=== PATIENT | female | born 1975 | race African-American/Black ===

== ENCOUNTER 2017-09-26 04:00 | Emergency (ER) | payer OTHER ==
--- NOTE | 2017-09-26 04:04 | PDOC ---
History of Present Illness - General Chief Complaint: Pain, Acute Stated Complaint: OB COMPLICATIONS Time Seen by Provider: 09/26/17 04:03 History Source: Patient - History of Present Illness Initial Comments: 09/26/17 04:25 41 year old female seen inthe ED earlier A3, with a significant past medical history of bipolar disorder, high risk pregnancies and preeclampsia , who presents to the emergency department with, severe abdominal cramping. previous ed course was significant for TVUS + IUP no heart rate likely demise Past History - Past Medical History Allergies/Adverse Reactions: Allergies Allergy/AdvReac Type Severity Reaction Status Date / Time No Known Allergies Allergy Verified 09/26/17 04:06 Home Medications: Ambulatory Orders Divalproex [Depakote -] 500 mg PO BID #60 tablet.ec 07/05/16 Paroxetine HCl [Paxil] 40 mg PO DAILY #30 tablet 07/05/16 Quetiapine Fumarate [Seroquel -] 400 mg PO BID #60 tab 07/05/16 traZODone HCL [Desyrel -] 100 mg PO HS #30 tablet 07/05/16 COPD: No HTN: Yes (Pre-eclampsia) - Reproductive History (#): 6 Para: 3 Cervical CA: No Dysfunctional Uterine Bleeding: No Ectopic : No Endometrial CA: No Polycystic Ovaries: No Therapeutic (s) & number: No Tubal Ligation: No Spontaneous : 2 - Suicide/Smoking/Psychosocial Hx Smoking History: Current every day smoker Have you smoked in the past 12 months: Yes Number of Cigarettes Smoked Daily: 10 Hx Alcohol Use: No Drug/Substance Use Hx: No *Physical Exam - Vital Signs 09/26/17 04:28 Last Vital Signs Temp Pulse Resp BP Pulse Ox 97.9 F 110 H 24 143/97 99 09/26/17 04:02 09/26/17 04:02 09/26/17 04:02 09/26/17 04:02 09/26/17 04:02 - Physical Exam General Appearance: Yes: Appropriately Dressed Female Pelvic Exam: positive: normal external exam, CMT, vaginal bleeding (in vault), other (os 1cm dilated) Gastrointestinal/Abdominal: positive: Normal Bowel Sounds, Soft Extremity: positive: Normal Capillary Refill, Normal Inspection, Normal Range of Motion Integumentary: positive: Normal Color, Dry, Warm Neurologic: positive: Fully Oriented, Alert, Normal Mood/Affect ED Treatment Course - LABORATORY CBC & Chemistry Diagram: 09/26/17 04:22 *DC/Admit/Observation/Transfer Diagnosis at time of Disposition: Miscarriage - Discharge Dispostion Condition at time of disposition: Guarded - Referrals - Patient Instructions - Post Discharge Activity
[2017-09-26] MEDS ORDERED: SODIUM CHLORIDE 1,000 ML IV STA (04:10)
[2017-09-26] MEDS ORDERED: morphine CARPU-JECT 4 MG/1 ML DISP.SYRIN IVPUSH ONE (04:14)
[2017-09-26] MEDS ORDERED: morphine SULFATE 4 MG/ML VIAL ONE ×2 (04:21→05:08)
[2017-09-26 04:34] VITALS: BMI 25.7
[2017-09-26] MEDS ORDERED: morphine SULFATE 4 MG/ML VIAL IVPUSH ONE (05:03)
[2017-09-26 05:14] LABS: BASO % 1.2 % (0-2.0); EOS % 1.7 % (0-4.5); HEMATOCRIT 35.8 % (32.4-45.2); HEMOGLOBIN 11.7 GM/dL (10.7-15.3); LYMPH % 46.1 % (8-40); MCH 28.8 pg (25.7-33.7); MCHC 32.7 g/dl (32.0-36.0); MEAN CELL VOLUME 88.1 fl (80-96); MEAN PLT VOLUME 10.2 fl (7.5-11.1); MONO % 7.5 % (3.8-10.2); NEUT % 43.5 % (42.8-82.8); PLATELET COUNT 255 K/MM3 (134-434); RBC 4.07 M/mm3 (3.60-5.2); RDW 16.8 % (11.6-15.6); WHITE BLOOD COUNT 7.6 K/mm3 (4.0-10.0)
--- NOTE | 2017-09-26 07:58 | PDOC ---
*Physical Exam - Vital Signs Last Vital Signs Temp Pulse Resp BP Pulse Ox 97.9 F 110 H 24 143/97 99 09/26/17 04:02 09/26/17 04:02 09/26/17 04:02 09/26/17 04:02 09/26/17 04:02 - Physical Exam General Appearance: Yes: Appropriately Dressed. No: Apparent Distress HEENT: positive: Normal Voice Neck: positive: Supple Respiratory/Chest: negative: Respiratory Distress Gastrointestinal/Abdominal: positive: Soft Integumentary: positive: Dry, Warm Neurologic: positive: Fully Oriented, Alert, Normal Mood/Affect ED Treatment Course - LABORATORY CBC & Chemistry Diagram: 09/26/17 04:22 - ADDITIONAL ORDERS Additional order review: Laboratory Results 09/26/17 04:22 Beta HCG, Quant 3901.6 09/26/17 04:22 RBC 4.07 MCV 88.1 MCHC 32.7 RDW 16.8 H MPV 10.2 Neutrophils % 43.5 Lymphocytes % 46.1 H Monocytes % 7.5 Eosinophils % 1.7 Basophils % 1.2 - Medications Given in the ED: ED Medications Discontinued Medications Generic Name Dose Route Start Last Admin Trade Name Freq PRN Reason Stop Dose Admin Sodium Chloride 1,000 mls @ 1,000 mls/hr 09/26/17 04:10 09/26/17 04:59 Normal Saline - IV 09/26/17 05:09 1,000 mls/hr ASDIR STA Administration Morphine Sulfate 4 mg 09/26/17 04:14 09/26/17 05:00 Morphine Injection - IVPUSH 09/26/17 04:15 4 mg ONCE ONE Administration Morphine Sulfate 4 mg 09/26/17 05:03 09/26/17 05:18 Morphine Sulfate IVPUSH 09/26/17 05:04 4 mg ONCE ONE Administration Medical Decision Making - Medical Decision Making 09/26/17 07:56 Patient signed out to me by ELAN Grossman at 7 AM Patient is a 41-year-old female, history of bipolar, status post multiple pregnancies including high-risk pregnancies, diagnosed with most likely demise at 7 weeks on ultrasound yesterday in ER. No cardiac activity was detected. Beta was over 5000. Patient was discharged to follow-up with OB, but returns today with abdominal cramping and spotting. Os 1 cm dilated as per prior team. Beta decreased today to over 3000. Ultrasound pending. RH + on labs yesterday. Of note, UA yesterday w/ 2+ LE and "many" bacteria. Ucx pending. Will tx 09/26/17 10:31 Ultrasound read as possible small amount of retained products of conception. Patient continues to complain of pain. IM Demerol in progress. Will c/w DELIVERY REP 09/26/17 11:[address] Ibarra who recommends Pitocin 20 units in 1000 mL normal saline at rate of 150 mL/hr. Recommend reevaluating in ED after several hours 09/26/17 17:43 Pt s/p Pitocin. On re-evaluation, states she has continued to bleed, but mostly spotting. Has no abdominal pain at this time and feels safe going home. Patient aware that she will continue to have bleeding and abdominal cramping, but should take pain medication as prescribed. Patient to follow-up with her DELIVERY REP for follow-up appointment next week as per discussion with Dr. Ibarra. Reasons to return to ER d/w pt *DC/Admit/Observation/Transfer Diagnosis at time of Disposition: Miscarriage - Discharge Dispostion Disposition: HOME Condition at time of disposition: Improved - Prescriptions Prescriptions: Nitrofurantoin Monohyd/M-Cryst [Macrobid -] 100 mg PO BID #14 capsule Tramadol HCl 50 mg PO Q6H #8 tablet MDD 4 doses - Referrals Referrals: Antonio Ibarra MD [Staff Physician] - - Patient Instructions Printed Discharge Instructions: Miscarriage Additional Instructions: You were given a dose of Pitocin in the ER to complete your miscarriage. Abdominal cramping and bleeding is to be expected. Please take pain medication as prescribed. If symptoms become unbearable at home and all you develop nausea, vomiting or fever, return to the ER immediately. Your urine also showed that you may have a UTI. Take antibiotics as prescribed. Please call Dr. Stacey crews this week for follow-up appointment next week - Post Discharge Activity
[2017-09-26] MEDS ORDERED: IBUPROFEN 400 MG TABLET (FP) PO ONE ×2 (10:25→10:26)
[2017-09-26] MEDS ORDERED: MEPERIDINE HCL CARPU-JECT 50 MG/1 ML DISP.SYRIN ONE ×2 (10:29→14:44)
[2017-09-26] MEDS ORDERED: MEPERIDINE HCL CARPU-JECT 50 MG/1 ML DISP.SYRIN IM ONE ×2 (10:30→14:10)
[2017-09-26] MEDS ORDERED: OXYTOCIN 20 UNITS in 0.9% NS 20 UNIT/1,000 ML INFUS.BAG IV SCH (11:15)
[2017-09-26 16:09] VITALS: BP 132/72; PULSE 74; TEMP 98.3
== END 2017-09-26 18:12 | disposition home or self-care (01) ==
LOC: JER 04:00
DX: O03.9 Complete or unspecified spontaneous abortion without complication (principal); F17.210 Nicotine dependence, cigarettes, uncomplicated; I10 Essential (primary) hypertension
CPT/HCPCS: 36415; 76830-TC; 84702; 85025; 86850; 86900; 86901; 99284-25; J7030

== ENCOUNTER 2018-11-25 01:25 | Emergency (ER) | payer OTHER ==
[2018-11-25 01:34] VITALS: BP 137/74; PULSE 82; TEMP 98.6; BMI 22.8
--- NOTE | 2018-11-25 03:42 | PDOC ---
History of Present Illness - General Chief Complaint: RX Refill Stated Complaint: RX REFILL Time Seen by Provider: 11/25/18 02:29 History Source: Patient Exam Limitations: No Limitations - History of Present Illness Initial Comments: 11/27/18 01:26 42YOF with h/o bipolar disorder who presents requesting refill of her seroquel ( 400 mg bid). She notes having discontinued care of her prior psychiatrist, so she cannot get her medications from them any more, and she is in the process of establishing with a new psychiatrist. She denies any new symptoms. She specifically denies insomnia, agitation, hallucinations, SI/HI, or other psychiatric symptoms. She denies f/c/n/v/d/c. She notes that she additionally takes trazodone, depakote, and other medications. Past History - Past Medical History Allergies/Adverse Reactions: Allergies Allergy/AdvReac Type Severity Reaction Status Date / Time No Known Allergies Allergy Verified 11/25/18 01:31 Home Medications: Ambulatory Orders Divalproex [Depakote -] 500 mg PO BID #60 tablet.ec 07/05/16 Paroxetine HCl [Paxil] 40 mg PO DAILY #30 tablet 07/05/16 Quetiapine Fumarate [Seroquel -] 400 mg PO BID #60 tab 07/05/16 traZODone HCL [Desyrel -] 100 mg PO HS #30 tablet 07/05/16 Nitrofurantoin Monohyd/M-Cryst [Macrobid -] 100 mg PO BID #14 capsule 09/26/17 Tramadol HCl 50 mg PO Q6H #8 tablet MDD 4 doses 09/26/17 COPD: No HTN: Yes (Pre-eclampsia) - Reproductive History (#): 6 Para: 3 Cervical CA: No Dysfunctional Uterine Bleeding: No Ectopic : No Endometrial CA: No Polycystic Ovaries: No Therapeutic (s) & number: No Tubal Ligation: No Spontaneous : 2 - Immunization History Immunization Up to Date: Yes - Suicide/Smoking/Psychosocial Hx Smoking History: Never smoked Have you smoked in the past 12 months: No Number of Cigarettes Smoked Daily: 10 Information on smoking cessation initiated: No Hx Alcohol Use: No Drug/Substance Use Hx: No Review of Systems - Review of Systems Able to Perform ROS?: Yes Comments:: 11/27/18 06:18 GEN: no fever, chills, malaise, generalized weakness, or weight change HEENT: no ear pain, sore throat, vision change, or eye pain CV: no chest pain, palpitations, lightheadedness, syncope, or edema RESP: no cough, wheezing, or SOB GI: no abdominal pain, nausea, vomiting, diarrhea, constipation, or white/black/ bloody stool : no dysuria, hematuria, incontinence, retention, bleeding, or discharge MSK: no neck/back pain, muscle weakness/pain, or joint swelling/pain NEURO: no headache, seizure, vertigo, numbness, tingling, or focal weakness PSYCH: no substance use, no behavior change, no SI, no HI, no hallucinations, no depression SKIN: no jaundice, no rash ROS otherwise negative except as noted in HPI *Physical Exam - Vital Signs Last Vital Signs Temp Pulse Resp BP Pulse Ox 98.6 F 82 20 137/74 99 11/25/18 01:31 11/25/18 01:31 11/25/18 01:31 11/25/18 01:31 11/25/18 01:31 - Physical Exam Comments: GENERAL: well-appearing, A/Ox4, no distress, answers questions appropriately, initially sleeping on hospital bed, significant other at bedside also being seen as a patient in the ED HEENT: PERRLA, EOMI, moist mucous membranes NECK/BACK: no midline ttp, no spinal stepoff or deformity, no hematoma, full ROM , neck supple CARDIOVASCULAR: regular rate/rhythm, normal S1S2, no MGR, strong peripheral pulses, capillary refill <2 seconds, extremities wwp, no edema LUNGS/RESPIRATORY: no respiratory distress, CTAB GI/ABDOMEN: symmetric idyn-si-hixy, normoactive BS, soft, no ttp, no midline pulsatile masses : no CVA tenderness EXTREMITIES: no muscle atrophy, no acute deformity SKIN: warm and dry, no pallor, no jaundice, no rash, no bruising, no skin breakdown, no cuts, no lesions PSYCHIATRIC: no SI, no HI, normal affect, normal judgment NEUROLOGICAL: GCS 15, CN II-XII grossly intact, 5/5 strength proximally and distally, no facial droop Medical Decision Making - Medical Decision Making 42YOF with h/o bipolar disorder on multiple psychiatric medications presents requesting refill of Seroquel. Initial Vital Signs Temp Pulse Resp BP Pulse Ox 98.6 F 82 20 137/74 99 11/25/18 01:31 11/25/18 01:31 11/25/18 01:31 11/25/18 01:31 11/25/18 01:31 Exam: As noted in Physical Exam section W/U ordered: None TX ordered: None The patient has denied SI/HI/depression/hallucinations/insomnia recently. I have a long discussion with the patient about establishing consistent psychiatric care. She states this is a goal of hers and she absolutely agrees she wants to re- establish. States she just could not continue under the care of her prior psychiatrist. She is amenable to reaching out to Dr. Montana's service and I have given her the referral info. I do discuss with her that we cannot give Rx for this type of psychiatric medication. Especially since she takes multiple psychiatric medications and they could interact. She is very understanding and states she will establish psychiatric care to refill medication. H&P is not concerning for emergency-level pathology at this time. Patient is appropriate for discharge with close outpatient follow up. She is comfortable with this plan and will follow up with PCP and Psychiatry in 1-3 days. Specific return precautions are discussed and they will come back to the ER if necessary. *DC/Admit/Observation/Transfer Diagnosis at time of Disposition: Bipolar disorder Qualifiers: Active/Remission status: remission status unspecified Qualified Code(s): F31.9 - Bipolar disorder, unspecified - Discharge Dispostion Disposition: HOME Condition at time of disposition: Stable Decision to Admit order: No - Referrals Referrals: Michael Montana MD [Staff Physician] - - Patient Instructions Additional Instructions: You were seen in the ER for bipolar disorder, and requesting a medication refill that unfortunately we were not able to prescribe. We also did an exam, and after our assessment, we do not believe you are having a medical emergency at this time, and we believe you are safe to go home. Please follow up with your primary care provider in 1-3 days. Also follow up with our psychiatrist, Dr. Montana, and his clinid. Call their clinic, tell them you were seen in the ER, and tell them you need a follow-up. If you have any new or worsening symptoms, especially suicidal or violent thoughts, please come back to the ER at any time (24 hours a day). If you are having severe or life threatening symptoms, or symptoms that make it unsafe to drive or have someone drive you, please call 911. - Post Discharge Activity
--- NOTE | 2018-11-25 03:51 | PDOC ---
Attending Attestation - Resident Resident Name: JoshOlena - ED Attending Attestation I have performed the following: I have examined & evaluated the patient, The case was reviewed & discussed with the resident, I agree w/resident's findings & plan - HPI HPI: 11/25/18 03:49 Pt wants a refill of her seroquel. We do not refill psych meds here. - Physicial Exam PE: 11/25/18 03:49 Normal exam - Medical Decision Making 11/25/18 03:49 Home with no refill
== END 2018-11-25 03:49 | disposition home or self-care (01) ==
LOC: JER 01:25
DX: Z76.0 Encounter for issue of repeat prescription (principal); F31.9 Bipolar disorder, unspecified
CPT/HCPCS: 99281-25

== ENCOUNTER 2019-03-20 16:57 | Inpatient (IN) | payer OTHER ==
[2019-03-20 18:50] VITALS: BMI 23.1
--- NOTE | 2019-03-20 20:21 | HP ---
CIWA Score - Admission Criteria [facility] Guidelines: Admission for Medically Managed Detox: Requires at least one of the followin. CIWA greater than 12 2. Seizures within the past 24 hours 3. Delirium tremens within the past 24 hours 4. Hallucinations within the past 24 hours 5. Acute intervention needed for co occurring medical disorder 6. Acute intervention needed for co occurring psychiatric disorder 7. Severe withdrawal that cannot be handled at a lower level of care (continued vomiting, continued diarrhea, abnormal vital signs) requiring intravenous medication and/or fluids 8. Admitting History and Physical - Past Medical History ...LMP: 08/12/17 - Smoking History Smoking history: Never smoked Have you smoked in the past 12 months: No Aproximately how many cigarettes per day: 10 - Alcohol/Substance Use Hx Alcohol Use: No Admission ROS S - HPI Chief Complaint: SEEKING REHAB SERVICES FOR K2/ COCAINE ABUSE Allergies/Adverse Reactions: Allergies Allergy/AdvReac Type Severity Reaction Status Date / Time No Known Allergies Allergy Verified 03/20/19 18:39 History of Present Illness: 43 Y.O AAF HERE FOR REHAB. SHE IS REFERRED BY HER SPOUSE (EMPLOYEE) FOR K2 AND COCAINE DEPENDENCE. THIS IS CLIENT FIRST TIME HERE. SHE REPORTS THIS IS HER FIRST TIME SEEKING TXMENT FOR HER ADDICTION. SHE REPORTS A HX/O K2 FOR THE PAST 2 YEARS AND RECENTLY STARTED DOING COCAINE THIS PAST WEEK. SHE SMOKES COCAINE APPROX 100 DOLLARS/DAILY. DENIES HX.O BLACK OUTS/ SEIZURES/ DRUG OVERDOSE. REPORTS LONGEST CLEAN TIME 1 YEAR. DENIES ANY RECENT CLEAN TIME THIS PAST YEAR. LIVE W/ FAMILY, UNEMPLOYED- DISABILITY, DENIES LEGALS Exam Limitations: No Limitations - Ebola screening Have you traveled outside of the country in the last 21 days: No Have you had contact with anyone from an Ebola affected area: No Have you been sick,other than usual withdrawal symptoms: No Do you have a fever: No - Review of Systems Constitutional: Chills, Loss of Appetite, Malaise, Night Sweats, Changes in sleep, Unintentional Wgt. Loss EENT: reports: Dental Problems (MISSING TEETH) Respiratory: reports: No Symptoms reported Cardiac: reports: No Symptoms Reported GI: reports: Poor Appetite, Abdominal cramping : reports: No Symptoms Reported Musculoskeletal: reports: Back Pain, Joint Pain, Neck Pain Integumentary: reports: No Symptoms Reported Neuro: reports: No Symptoms reported Endocrine: reports: No Symptoms Reported Hematology: reports: No Symptoms Reported Psychiatric: reports: Orientated x3, Agitated (IRRITABLE), Depressed (DENIES SI/ HI) Other Systems: Reviewed and Negative Patient History - Patient Medical History Hx Anemia: Yes Hx Asthma: No Hx Chronic Obstructive Pulmonary Disease (COPD): No Hx Cancer: No Hx Cardiac Disorders: No Hx Congestive Heart Failure: No Hx Hypertension: Yes Hx Hypercholesterolemia: No Hx Pacemaker: No HX Cerebrovascular Accident: No Hx Seizures: No Hx Dementia: No Hx Diabetes: No Hx Gastrointestinal Disorders: No Hx Liver Disease: No Hx Genitourinary Disorders: No Hx Sexually Transmitted Disorders: No Hx Renal Disease (ESRD): No Hx Thyroid Disease: No Hx Human Immunodeficiency Virus (HIV): No Hx Hepatitis C: No Hx Depression: Yes (SEROQUEL, TRAZODONE, PAXIL) Hx Suicide Attempt: Yes (AT THE AGE 17 RAN INFRONT OF THE BUS) Hx Bipolar Disorder: Yes Hx Schizophrenia: No Other Medical History: PTSD, PERSONAILTY D/O - Patient Surgical History Past Surgical History: Yes Hx Section: Yes (2) Anesthesia Reaction: No - PPD History Previous Implant?: Yes Documented Results: Negative w/o proof Implanted On Prior R Admission?: No PPD to be Administered?: Yes - Reproductive History Patient is a Female of Child Bearing Age (11 -55 yrs old): Yes Last Menstrual Period: 03/19/19 LMP comment: IRREG Patient : No ([facility] [place]) - Smoking Cessation Smoking history: Current every day smoker Have you smoked in the past 12 months: No Aproximately how many cigarettes per day: 10 Cigars Per Day: 0 Hx Chewing Tobacco Use: No Initiated information on smoking cessation: Yes 'Breaking Loose' booklet given: 03/20/19 - Substance & Tx. History Hx Alcohol Use: Yes Hx Substance Use: Yes Substance Use Type: Cocaine, Marijuana (K2) Hx Substance Use Treatment: No - Substances abused K2/Spice Substance route: Smoking Frequency: Daily Amount used: $50 Age of first use: 41 Date of last use: 03/20/19 Crack Substance route: Smoking Frequency: Daily Amount used: $100 Age of first use: 43 Date of last use: 03/18/19 Admission Physical Exam [facility] - Vital Signs Vital Signs: Vital Signs - 24 hr 03/20/19 18:42 Temperature 99.3 F Pulse Rate 98 H Respiratory 18 Rate Blood Pressure 148/95 - Physical General Appearance: Yes: Other (DEPRESSED AFFECT) HEENTM: Yes: EOMI, Normocephalic, Normal Voice, FELIPE, Pharynx Normal, Other ( missing teeth) Respiratory: Yes: Chest Non-Tender, Lungs Clear, Normal Breath Sounds, No Respiratory Distress, No Accessory Muscle Use Neck: Yes: No masses,lesions,Nodules, Supple, Trachea in good position Breast: Yes: Breasts Symetrical Cardiology: Yes: Regular Rhythm, Regular Rate, S1, S2 Abdominal: Yes: Normal Bowel Sounds, Non Tender, Soft Genitourinary: Yes: Within Normal Limits Back: Yes: Normal Inspection Musculoskeletal: Yes: full range of Motion, Gait Steady Extremities: Yes: Normal Capillary Refill, Non-Tender, Other (soiled finger nail beds) Neurological: Yes: Fully Oriented, Alert, Motor Strength 5/5, Depressed Affect Integumentary: Yes: Normal Color, Dry, Warm Lymphatic: Yes: Within Normal Limits - Diagnostic (1) Cocaine dependence, uncomplicated Current Visit: Yes Status: Acute (2) Synthetic cannabinoid dependence Current Visit: Yes Status: Acute (3) HTN (hypertension) Current Visit: Yes Status: Chronic Qualifiers: Hypertension type: essential hypertension Qualified Code(s): I10 - Essential (primary) hypertension (4) Depressed affect Current Visit: Yes Status: Acute (5) Drug-induced mood disorder Current Visit: Yes Status: Acute (6) Nicotine dependence Current Visit: Yes Status: Chronic Qualifiers: Nicotine product type: cigarettes Substance use status: uncomplicated Qualified Code(s): F17.210 - Nicotine dependence, cigarettes, uncomplicated (7) Psychiatric disorder Current Visit: Yes Status: Chronic Comment: REPORTED HX/O DEPRESSION, BIPOLAR, PTSD, PERSONALITY D/O Cleared for Admission [facility] - Detox or Rehab Detox Regimen/Protocol: Not Applicable Claeared for Rehab Admission: Yes Breathalyzer - Breathalyzer Breathalyzer: 0 Urine Drug Screen - Test Device Lot number: [id number] Expiration date: 11/13/20 - Control Is test valid?: Yes - Results Drug screen NEGATIVE: No Urine drug screen results: JORGE-Cocaine Inpatient Rehab Admission - Rehab Decision to Admit Inpatient rehab admission?: Yes - Initial Determination Are CD services needed?: Yes Free of communicable disease: Yes Not in need of hospitalization: Yes - Rehab Admission Criteria Previous failed treatment: Yes Poor recovery environment: Yes Comorbidities: Yes Lacks judgement: No Patient is meeting Inpatient Rehab admission criteria:: Yes
[2019-03-20] MEDS ORDERED: P-EPHED 60MG/TRIPROLIDI 2.5MG TABLET PO PRN (20:30)
[2019-03-20] MEDS ORDERED: MAGNESIUM CITRATE 300 ML BOTTLE PO PRN (20:30)
[2019-03-20] MEDS ORDERED: MAG HYDROX/AL HYDROX/SIMETH 30 ML UNIT-DOSE CUP PO PRN (20:30)
[2019-03-20] MEDS ORDERED: guaiFENesin 200 MG/10 ML 10 ML UNIT-DOSE CUPS PO PRN (20:30)
[2019-03-20] MEDS ORDERED: NICOTINE POLACRILEX 2 MG GUM BC PRN (20:30)
[2019-03-20] MEDS ORDERED: LOPERAMIDE HCL 2 MG CAPSULE PO PRN (20:30)
[2019-03-20] MEDS ORDERED: MAGNESIUM HYDROX 2400MG/30ML ORAL SUSPENSION 30 ML CUP PO PRN (20:30)
[2019-03-20] MEDS ORDERED: MENTHOL/PHENOL 1 EACH UD MM PRN (20:30)
[2019-03-20] MEDS ORDERED: ACETAMINOPHEN 325 MG TABLET (FP) PO PRN (20:30)
[2019-03-20] MEDS ORDERED: IBUPROFEN 400 MG TABLET (FP) PO PRN (20:30)
[2019-03-20] MEDS ORDERED: TUBERCULIN PPD 5 TU/0.1ML VIAL ID ONE (22:09)
[2019-03-20] MEDS: THIAMINE HCL 100 MG TABLET (FP) PO SCH (22:23)
[2019-03-21] MEDS: PRENATAL VITAMINS W/ FOLIC ACID TABLET (FP) PO SCH (10:05)
[2019-03-21] MEDS: NICOTINE 14 MG/24 HOURS TOPICAL PATCH TD SCH (10:05)
--- NOTE | 2019-03-21 10:45 | EKG ---
Test Reason : Blood Pressure : / mmHG Vent. Rate : 077 BPM Atrial Rate : 077 BPM P-R Int : 138 ms QRS Dur : 084 ms QT Int : 392 ms P-R-T Axes : 048 054 047 degrees QTc Int : 443 ms NORMAL SINUS RHYTHM NONSPECIFIC T WAVE ABNORMALITY ABNORMAL ECG NO PREVIOUS ECGS AVAILABLE Confirmed by RANJANA PARDO, NELLY ([id number]) on 03/21/2019 10:45:16 AM Referred By: Confirmed By:NELLY CHILEL MD
[2019-03-21] MEDS ORDERED: PNEUMOC 13-VAL CONJ-DIP CRM/PF 0.5 ML DISP.SYRIN IM ONE (12:00)
[2019-03-21] MEDS ORDERED: PNEUMOCOCCAL 23 VACCINE 0.5 ML VIAL IM ONE (12:00)
[2019-03-21] MEDS ORDERED: FLU VACCINE QUAD 60 MCG/0.5 ML (MDV 19-20) IM ONE (12:00)
[2019-03-21 12:18] LABS: HEMATOCRIT 33.7 % (32.4-45.2); HEMOGLOBIN 10.8 GM/dL (10.7-15.3); MCH 26.5 pg (25.7-33.7); MEAN CELL VOLUME 82.9 fl (80-96); MEAN PLT VOLUME 11.6 fl (7.5-11.1); PLATELET COUNT 278 K/MM3 (134-434); RBC 4.07 M/mm3 (3.60-5.2); RDW 20.1 % (11.6-15.6); WHITE BLOOD COUNT 7.6 K/mm3 (4.0-10.0)
[2019-03-21 12:19] LABS: HYALINE CASTS 3 /lpf (0-8); PH,URINE 5.5 (5.0-8.0); URINE APPEARANCE CLOUDY; URINE BACTERIA 45.9 /hpf (NEGATIVE); URINE BILIRUBIN 1+ (NEGATIVE); URINE COLOR DK YELLOW; URINE GLUCOSE (UA) NEGATIVE (NEGATIVE); URINE KETONE TRACE (NEGATIVE); URINE LEUK ESTERASE 1+ (NEGATIVE); URINE NITRITE NEGATIVE (NEGATIVE); URINE PROTEIN 1+ (NEGATIVE); URINE WBC 33 /hpf (0-5)
[2019-03-21 12:38] LABS: URINE CRYSTALS NONE SEEN /hpf; URINE RBC 278.1 /hpf (0-4)
[2019-03-21 12:42] LABS: ALBUMIN 3.7 g/dl (3.4-5.0); BILIRUBIN,TOTAL 0.5 mg/dL (0.2-1); BLOOD UREA NITROGEN 19.5 mg/dL (7-18); CREATININE 1.1 mg/dL (0.55-1.3); POTASSIUM 3.6 mmol/L (3.5-5.1); TOT PROT 7.3 g/dl (6.4-8.2)
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
[2019-03-21] MEDS: THIAMINE HCL 100 MG TABLET (FP) PO SCH (21:57)
[2019-03-21] MEDS: hydrOXYzine PAMOATE 50 MG CAPSULE (FP) PO PRN (21:58)
[2019-03-21] MEDS ORDERED: PT OWN MED DRAWER 7, Y5N ONE (21:59)
[2019-03-21] MEDS: PARoxetine HCL 20 MG TABLET PO SCH (21:59)
[2019-03-21] MEDS: traZODone HCL 50 MG TABLET (FP) PO SCH (22:00)
[2019-03-21] MEDS: QUEtiapine FUMARATE 400 MG TABLET PO SCH (22:06)
[2019-03-22] MEDS ORDERED: PT OWN MED DRAWER 7, Y5N ONE ×2 (08:20→20:59)
[2019-03-22] MEDS: QUEtiapine FUMARATE 400 MG TABLET PO SCH ×2 (10:09→22:14)
[2019-03-22] MEDS: PRENATAL VITAMINS W/ FOLIC ACID TABLET (FP) PO SCH (10:09)
[2019-03-22] MEDS: PARoxetine HCL 20 MG TABLET PO SCH ×2 (10:09→22:14)
[2019-03-22] MEDS: NICOTINE 14 MG/24 HOURS TOPICAL PATCH TD SCH (10:09)
[2019-03-22] MEDS: hydrOXYzine PAMOATE 50 MG CAPSULE (FP) PO PRN (12:45)
--- NOTE | 2019-03-22 13:55 | PN ---
[facility] Progress Note Note: Patient referred by JUDY Moseley for c/o body aches, restlessness and dizziness. Patient resting in bed and stated to Provider " I feel better now. I just want to rest." Provider honored patients request. Vital Signs Temperature 98.4 F 03/22/19 12:40 Pulse Rate 94 H 03/22/19 12:40 Respiratory Rate 18 03/22/19 12:40 Blood Pressure 132/91 03/22/19 12:40 O2 Sat by Pulse Oximetry (%) Laboratory Tests 03/20/19 03/21/19 03/21/19 19:35 09:00 09:00 WBC 7.6 RBC 4.07 Hgb 10.8 Hct 33.7 MCV 82.9 MCH 26.5 MCHC 32.0 RDW 20.1 H Plt Count 278 MPV 11.6 H D Sodium 140 Potassium 3.6 Chloride 108 H Carbon Dioxide 25 Anion Gap 7 L BUN 19.5 H Creatinine 1.1 Est GFR (CKD-EPI)AfAm 72.22 Est GFR (CKD-EPI)NonAf 62.31 Random Glucose 126 H Calcium 9.0 Total Bilirubin 0.5 AST 5 L ALT 12 L Alkaline Phosphatase 57 Total Protein 7.3 Albumin 3.7 Urine Color Urine Appearance Urine pH Ur Specific [place] Urine Protein Urine Glucose (UA) Urine Ketones Urine Blood Urine Nitrite Urine Bilirubin Urine Urobilinogen Ur Leukocyte Esterase Urine WBC (Auto) Urine RBC (Auto) Urine Casts (Auto) U Epithel Cells (Auto) Urine Crystals (Auto) Urine Bacteria (Auto) POC Urine HCG, Qual Negative RPR Titer 03/21/19 03/21/19 09:00 10:25 WBC RBC Hgb Hct MCV MCH MCHC RDW Plt Count MPV Sodium Potassium Chloride Carbon Dioxide Anion Gap BUN Creatinine Est GFR (CKD-EPI)AfAm Est GFR (CKD-EPI)NonAf Random Glucose Calcium Total Bilirubin AST ALT Alkaline Phosphatase Total Protein Albumin Urine Color Dk yellow Urine Appearance Cloudy Urine pH 5.5 Ur Specific [place] 1.025 Urine Protein 1+ H Urine Glucose (UA) Negative Urine Ketones Trace H Urine Blood 3+ H Urine Nitrite Negative Urine Bilirubin 1+ H Urine Urobilinogen 1.0 Ur Leukocyte Esterase 1+ H Urine WBC (Auto) 33 Urine RBC (Auto) 278.1 Urine Casts (Auto) 3 U Epithel Cells (Auto) 3.0 Urine Crystals (Auto) None seen Urine Bacteria (Auto) 45.9 POC Urine HCG, Qual RPR Titer Nonreactive UA results reviewed. + hematuria. Will repeat in AM.
[2019-03-22] MEDS: MELATONIN 5 MG TABLETS PO PRN (22:14)
[2019-03-22] MEDS: traZODone HCL 50 MG TABLET (FP) PO SCH (22:14)
[2019-03-22] MEDS: THIAMINE HCL 100 MG TABLET (FP) PO SCH (22:14)
[2019-03-23] MEDS: PRENATAL VITAMINS W/ FOLIC ACID TABLET (FP) PO SCH (10:00)
[2019-03-23] MEDS: NICOTINE 14 MG/24 HOURS TOPICAL PATCH TD SCH (10:00)
[2019-03-23] MEDS: QUEtiapine FUMARATE 400 MG TABLET PO SCH ×2 (10:00→21:45)
[2019-03-23] MEDS: PARoxetine HCL 20 MG TABLET PO SCH ×2 (10:00→21:44)
[2019-03-23] MEDS ORDERED: PT OWN MED DRAWER 7, Y5N ONE (19:34)
[2019-03-23] MEDS: hydrOXYzine PAMOATE 50 MG CAPSULE (FP) PO PRN (21:44)
[2019-03-23] MEDS: traZODone HCL 50 MG TABLET (FP) PO SCH (21:44)
[2019-03-23] MEDS: THIAMINE HCL 100 MG TABLET (FP) PO SCH (21:44)
[2019-03-24] MEDS: hydrOXYzine PAMOATE 50 MG CAPSULE (FP) PO PRN ×3 (08:39→21:27)
[2019-03-24] MEDS: QUEtiapine FUMARATE 400 MG TABLET PO SCH ×2 (10:28→21:27)
[2019-03-24] MEDS: PRENATAL VITAMINS W/ FOLIC ACID TABLET (FP) PO SCH (10:28)
[2019-03-24] MEDS: PARoxetine HCL 20 MG TABLET PO SCH ×2 (10:28→21:27)
[2019-03-24] MEDS: NICOTINE 14 MG/24 HOURS TOPICAL PATCH TD SCH (10:28)
[2019-03-24] MEDS ORDERED: PT OWN MED DRAWER 7, Y5N ONE (18:43)
[2019-03-24] MEDS: THIAMINE HCL 100 MG TABLET (FP) PO SCH (21:27)
[2019-03-24] MEDS: MELATONIN 5 MG TABLETS PO PRN (21:27)
[2019-03-24] MEDS: traZODone HCL 50 MG TABLET (FP) PO SCH (21:27)
[2019-03-25] MEDS: hydrOXYzine PAMOATE 50 MG CAPSULE (FP) PO PRN ×3 (10:05→21:24)
[2019-03-25] MEDS: PARoxetine HCL 20 MG TABLET PO SCH ×2 (10:06→21:23)
[2019-03-25] MEDS: PRENATAL VITAMINS W/ FOLIC ACID TABLET (FP) PO SCH (10:06)
[2019-03-25] MEDS: NICOTINE 14 MG/24 HOURS TOPICAL PATCH TD SCH (10:06)
[2019-03-25] MEDS: QUEtiapine FUMARATE 400 MG TABLET PO SCH ×2 (10:06→21:23)
[2019-03-25] MEDS ORDERED: PT OWN MED DRAWER 7, Y5N ONE (19:27)
[2019-03-25] MEDS: MELATONIN 5 MG TABLETS PO PRN (21:23)
[2019-03-25] MEDS: THIAMINE HCL 100 MG TABLET (FP) PO SCH (21:23)
[2019-03-25] MEDS: traZODone HCL 50 MG TABLET (FP) PO SCH (21:23)
[2019-03-26] MEDS: QUEtiapine FUMARATE 400 MG TABLET PO SCH ×2 (10:15→21:41)
[2019-03-26] MEDS: NICOTINE 14 MG/24 HOURS TOPICAL PATCH TD SCH (10:15)
[2019-03-26] MEDS: PRENATAL VITAMINS W/ FOLIC ACID TABLET (FP) PO SCH (10:15)
[2019-03-26] MEDS: hydrOXYzine PAMOATE 50 MG CAPSULE (FP) PO PRN ×3 (10:15→21:41)
[2019-03-26] MEDS: PARoxetine HCL 20 MG TABLET PO SCH ×2 (10:15→21:41)
[2019-03-26] MEDS ORDERED: PT OWN MED DRAWER 7, Y5N ONE (19:49)
[2019-03-26] MEDS: THIAMINE HCL 100 MG TABLET (FP) PO SCH (21:40)
[2019-03-26] MEDS: MELATONIN 5 MG TABLETS PO PRN (21:40)
[2019-03-26] MEDS: traZODone HCL 50 MG TABLET (FP) PO SCH (21:41)
[2019-03-26 23:07] LABS: URINE APPEARANCE TURBID; URINE BILIRUBIN NEGATIVE (NEGATIVE); URINE COLOR YELLOW; URINE GLUCOSE (UA) NEGATIVE (NEGATIVE); URINE KETONE NEGATIVE (NEGATIVE); URINE LEUK ESTERASE NEGATIVE (NEGATIVE); URINE NITRITE NEGATIVE (NEGATIVE); URINE PROTEIN NEGATIVE (NEGATIVE)
[2019-03-27] MEDS ORDERED: PT OWN MED DRAWER 7, Y5N ONE ×2 (10:19→17:02)
[2019-03-27] MEDS: QUEtiapine FUMARATE 400 MG TABLET PO SCH ×2 (10:41→21:38)
[2019-03-27] MEDS: PARoxetine HCL 20 MG TABLET PO SCH ×2 (10:41→21:36)
[2019-03-27] MEDS: hydrOXYzine PAMOATE 50 MG CAPSULE (FP) PO PRN ×2 (10:41→21:36)
[2019-03-27] MEDS: PRENATAL VITAMINS W/ FOLIC ACID TABLET (FP) PO SCH (10:41)
[2019-03-27] MEDS: NICOTINE 14 MG/24 HOURS TOPICAL PATCH TD SCH (10:42)
[2019-03-27] MEDS: MELATONIN 5 MG TABLETS PO PRN (21:35)
[2019-03-27] MEDS: THIAMINE HCL 100 MG TABLET (FP) PO SCH (21:35)
[2019-03-27] MEDS: traZODone HCL 50 MG TABLET (FP) PO SCH (21:37)
[2019-03-28] MEDS: QUEtiapine FUMARATE 400 MG TABLET PO SCH ×2 (10:26→21:25)
[2019-03-28] MEDS: NICOTINE 14 MG/24 HOURS TOPICAL PATCH TD SCH (10:26)
[2019-03-28] MEDS: PARoxetine HCL 20 MG TABLET PO SCH ×2 (10:26→21:23)
[2019-03-28] MEDS: PRENATAL VITAMINS W/ FOLIC ACID TABLET (FP) PO SCH (10:26)
[2019-03-28] MEDS: hydrOXYzine PAMOATE 50 MG CAPSULE (FP) PO PRN (10:27)
[2019-03-28] MEDS: THIAMINE HCL 100 MG TABLET (FP) PO SCH (21:23)
[2019-03-28] MEDS: traZODone HCL 50 MG TABLET (FP) PO SCH (21:23)
[2019-03-28] MEDS ORDERED: PT OWN MED DRAWER 7, Y5N ONE (21:25)
[2019-03-28] MEDS: MELATONIN 5 MG TABLETS PO PRN (21:25)
[2019-03-29] MEDS: NICOTINE 14 MG/24 HOURS TOPICAL PATCH TD SCH (10:19)
[2019-03-29] MEDS: QUEtiapine FUMARATE 400 MG TABLET PO SCH ×2 (10:19→21:54)
[2019-03-29] MEDS: PARoxetine HCL 20 MG TABLET PO SCH ×2 (10:19→21:55)
[2019-03-29] MEDS: PRENATAL VITAMINS W/ FOLIC ACID TABLET (FP) PO SCH (10:19)
[2019-03-29] MEDS: hydrOXYzine PAMOATE 50 MG CAPSULE (FP) PO PRN ×2 (10:20→21:54)
--- NOTE | 2019-03-29 10:25 | PN ---
[facility] Progress Note (SOAP) Subjective: Patient reporting using citroma without results. Would prefer a stool softener. Objective: General: No apparent distress ABD: soft. +BS Neuro: intact 03/29/19 10:25 Assessment: constipation 03/29/19 10:25 Plan: Colace ordered.
[2019-03-29] MEDS ORDERED: PT OWN MED DRAWER 7, Y5N ONE (19:41)
[2019-03-29] MEDS: DOCUSATE SODIUM 100 MG CAPSULE (FP) PO SCH (21:54)
[2019-03-29] MEDS: THIAMINE HCL 100 MG TABLET (FP) PO SCH (21:55)
[2019-03-29] MEDS: traZODone HCL 50 MG TABLET (FP) PO SCH (21:55)
[2019-03-29] MEDS: MELATONIN 5 MG TABLETS PO PRN (21:55)
--- NOTE | 2019-03-29 23:29 | PN ---
[facility] Progress Note Note: Patient c/o neding more time for rehab and states insurance company will only allow for 14 days. Patient states "This 14 days are of no value. I wish I were ". Patient states I'm not going to kill myself now, with so many people watching. Patient encouraged to f/u w/ a MH Provider upon discharge and she states "I know I can go to [facility]. Plan: 1:1 Observation Psych consult for anjana
[2019-03-30] MEDS ORDERED: PT OWN MED DRAWER 7, Y5N ONE (08:58)
[2019-03-30] MEDS: PARoxetine HCL 20 MG TABLET PO SCH ×2 (09:44→21:31)
[2019-03-30] MEDS: NICOTINE 14 MG/24 HOURS TOPICAL PATCH TD SCH (09:44)
[2019-03-30] MEDS: PRENATAL VITAMINS W/ FOLIC ACID TABLET (FP) PO SCH (09:44)
[2019-03-30] MEDS: QUEtiapine FUMARATE 400 MG TABLET PO SCH ×2 (09:44→21:30)
[2019-03-30] MEDS: hydrOXYzine PAMOATE 50 MG CAPSULE (FP) PO PRN ×2 (09:45→21:30)
--- NOTE | 2019-03-30 12:52 | PN ---
Psychiatric Progress Note Vital Signs: Vital Signs Period Temp Pulse Resp BP Sys/Arreguin Pulse Ox Last 24 Hr 97.9 F-98.1 F 69-84 16-18 109-111/72-75 Date of Session: 03/30/19 Chief Complaint:: " I regret my words. I don't want to kill myself. I was angry yesterday." HPI: Day 11 of rehabilitation for this 43 y/o Ghanaian female addressing issues of JANN (alcohol, cocaine, cannabis/K2, nicotine) co-morbid with Bipolar Disorder. Patient was placed on Constant Observation last night after she verbalized suicidal threats. Precipitant : dissatisfaction about her allocated length of stay (14 days versus 28 days). Psychiatric evaluation was requested to determine mental status + disposition. ROS: Unremarkable. Patient is noted as pleasant, calm, conversant and ambulatory. No evidence of distress. No somatic complaints. Current Medications: Active Medications Generic Name Dose Route Start Last Admin Trade Name Freq PRN Reason Stop Dose Admin Acetaminophen 650 mg 03/20/19 20:30 03/28/19 10:26 Tylenol - PO 650 mg Q4H PRN Administration FEVER Al Hydroxide/Mg Hydroxide 30 ml 03/20/19 20:30 Mylanta Oral Suspension - PO Q6H PRN DYSPEPSIA Docusate Sodium 300 mg 03/29/19 22:00 03/29/19 21:54 Colace - PO 300 mg HS HCANDAN Administration Eucalyptus/Menthol/Phenol/Sorbitol 1 each 03/20/19 20:30 Cepastat Lozenge - MM Q4H PRN SORE THROAT Guaifenesin 10 ml 03/20/19 20:30 Robitussin - PO Q6H PRN COUGH Hydroxyzine Pamoate 50 mg 03/20/19 20:30 03/30/19 09:45 Vistaril - PO 50 mg Q4H PRN Administration AGITATION Ibuprofen 400 mg 03/20/19 20:30 03/22/19 12:45 Motrin - PO 400 mg Q6H PRN Administration Pain level 4-6 Loperamide HCl 4 mg 03/20/19 20:30 Imodium - PO Q6H PRN DIARRHEA Magnesium Citrate 300 ml 03/20/19 20:30 03/27/19 17:39 Citroma - PO 300 ml Q48H PRN Administration CONSTIPATION Magnesium Hydroxide 30 ml 03/20/19 20:30 Milk Of Magnesia - PO DAILY PRN CONSTIPATION Melatonin 5 mg 03/20/19 22:00 03/29/19 21:55 Melatonin PO 5 mg HS PRN Administration INSOMNIA Nicotine 14 mg 03/21/19 10:00 03/30/19 09:44 Nicoderm Patch - TD 14 mg DAILY CHANDAN Administration Nicotine Polacrilex 2 mg 03/20/19 20:30 Nicorette Gum - BC Q2H PRN NICOTINE REPLACEMENT RX Paroxetine HCl 20 mg 03/21/19 22:00 03/30/19 09:44 Paxil - PO 20 mg BID CHANDAN Administration Multivit/Folic Acid/Iron 1 tab 03/21/19 10:00 03/30/19 09:44 Vitamins (Sjr) - PO 1 tab DAILY CHANDAN Administration Pseudoephedrine/Triprolidine 1 combo 03/20/19 20:30 Actifed - PO TID PRN NASAL CONGESTION Quetiapine Fumarate 400 mg 03/21/19 22:00 03/30/19 09:44 Seroquel - PO 400 mg BID CHANDAN Administration Thiamine HCl 100 mg 03/20/19 22:00 03/29/19 21:55 Vitamin B1 - PO 100 mg HS CHANDAN Administration Trazodone HCl 150 mg 03/21/19 22:00 03/29/19 21:55 Desyrel - PO 150 mg HS CHANDAN Administration Medication(s) Change(s): Medications revisited. External pharmacy activity reviewed. Doses re-confirmed. Patient offers no complaint of adverse effects. She endorses good tolerability to current regimen. See orders listed above. Current Side Effect: No Lab tests ordered: No Lab tests reviewed: Yes Provider note:: Chart reviewed. Nursing progress notes revisited. mix technician Yelena Lopez's note of 03/21/19 : read and appreciated. Met with the patient ( still on 1:1 watch) with inside sales, JUDY Cruz, in attendance. Ms Rashid is apologetic, remorseful for her comments and cooperative with MD. " I was so angry and upset. I felt that 15 days of rehab are not enough to address my drug issues. I expected more, let's say, 21 days or 28 days. I never had thoughts of hurting myself. Those words were said in anger." Patient has since calmed down. She is receptive to teaching, appropriate, controlled, friendly and future- oriented. No evidence of psychosis or esha. Euthymic mood and full range affect. Patient is well-related. Cognitively intact. She is adherent to medications + unit rules/regulations. Attends groups. She consistently denies experiencing suicidal/homicidal ideation, intent or plan. Patient declares that she will abide by the disposition arrangements set by the Multidisciplinary team. She is NOT a danger to self or others. Ms Rashid DOES NOT meet criteria for transfer to a psychiatric institution for inpatient care. She can continue rehabilitative care at [facility]. Patient is at baseline. Stable mental status. See MSE report for details. Discussed with nursing staff. Constant Observation is discontinued. Downgraded to routine level of observation. Support and motivational counseling provided in this session. Total face to face time:: 35 Mental Status Exam - Mental Status Exam Alert and Oriented to: Time, Place, Person Cognitive Function: Good Patient Appearance: Well Groomed Mood: Hopeful, Euthymic Affect: Appropriate, Normal Range Patient Behavior: Appropriate, Cooperative Speech Pattern: Clear, Appropriate Voice Loudness: Normal Thought Process: Intact, Goal Oriented Thought Disorder: Not Present Hallucinations: Denies Suicidal Ideation: Denies Homicidal Ideation: Denies Insight/Judgement: Good Sleep: Well Appetite: Good Gait/Station: Normal Psychiatric Treatment Plan - Problem List (1) Bipolar disorder Current Visit: Yes Comment: . (2) Cocaine dependence, uncomplicated Current Visit: Yes Comment: . (3) Nicotine dependence Current Visit: Yes Qualifiers: Nicotine product type: cigarettes Substance use status: uncomplicated Qualified Code(s): F17.210 - Nicotine dependence, cigarettes, uncomplicated Comment: . (4) Cannabis dependence Current Visit: No Comment: .
[2019-03-30] MEDS: MELATONIN 5 MG TABLETS PO PRN (21:30)
[2019-03-30] MEDS: THIAMINE HCL 100 MG TABLET (FP) PO SCH (21:30)
[2019-03-30] MEDS: DOCUSATE SODIUM 100 MG CAPSULE (FP) PO SCH (21:31)
[2019-03-30] MEDS: traZODone HCL 50 MG TABLET (FP) PO SCH (21:31)
[2019-03-31] MEDS ORDERED: PT OWN MED DRAWER 7, Y5N ONE (08:39)
[2019-03-31] MEDS: NICOTINE 14 MG/24 HOURS TOPICAL PATCH TD SCH (10:33)
[2019-03-31] MEDS: QUEtiapine FUMARATE 400 MG TABLET PO SCH ×2 (10:33→21:24)
[2019-03-31] MEDS: PRENATAL VITAMINS W/ FOLIC ACID TABLET (FP) PO SCH (10:34)
[2019-03-31] MEDS: hydrOXYzine PAMOATE 50 MG CAPSULE (FP) PO PRN ×3 (10:34→21:26)
[2019-03-31] MEDS: PARoxetine HCL 20 MG TABLET PO SCH ×2 (10:34→21:25)
[2019-03-31] MEDS: THIAMINE HCL 100 MG TABLET (FP) PO SCH (21:24)
[2019-03-31] MEDS: DOCUSATE SODIUM 100 MG CAPSULE (FP) PO SCH (21:24)
[2019-03-31] MEDS: traZODone HCL 50 MG TABLET (FP) PO SCH (21:25)
[2019-03-31] MEDS: MELATONIN 5 MG TABLETS PO PRN (21:26)
[2019-04-01] MEDS: NICOTINE 14 MG/24 HOURS TOPICAL PATCH TD SCH (09:45)
[2019-04-01] MEDS: PARoxetine HCL 20 MG TABLET PO SCH ×2 (09:46→21:18)
[2019-04-01] MEDS: QUEtiapine FUMARATE 400 MG TABLET PO SCH ×2 (09:46→21:18)
[2019-04-01] MEDS: hydrOXYzine PAMOATE 50 MG CAPSULE (FP) PO PRN ×2 (09:46→21:18)
[2019-04-01] MEDS: PRENATAL VITAMINS W/ FOLIC ACID TABLET (FP) PO SCH (09:46)
[2019-04-01] MEDS: THIAMINE HCL 100 MG TABLET (FP) PO SCH (21:17)
[2019-04-01] MEDS: traZODone HCL 50 MG TABLET (FP) PO SCH (21:18)
[2019-04-01] MEDS: DOCUSATE SODIUM 100 MG CAPSULE (FP) PO SCH (21:18)
[2019-04-02] MEDS ORDERED: PT OWN MED DRAWER 7, Y5N ONE ×2 (09:00→23:13)
[2019-04-02] MEDS: hydrOXYzine PAMOATE 50 MG CAPSULE (FP) PO PRN (09:46)
[2019-04-02] MEDS: NICOTINE 14 MG/24 HOURS TOPICAL PATCH TD SCH (09:46)
[2019-04-02] MEDS: PARoxetine HCL 20 MG TABLET PO SCH ×2 (09:46→21:45)
[2019-04-02] MEDS: QUEtiapine FUMARATE 400 MG TABLET PO SCH ×2 (09:46→21:47)
[2019-04-02] MEDS: PRENATAL VITAMINS W/ FOLIC ACID TABLET (FP) PO SCH (09:46)
[2019-04-02] MEDS: DOCUSATE SODIUM 100 MG CAPSULE (FP) PO SCH (21:45)
[2019-04-02] MEDS: traZODone HCL 50 MG TABLET (FP) PO SCH (21:45)
[2019-04-02] MEDS: THIAMINE HCL 100 MG TABLET (FP) PO SCH (21:45)
[2019-04-02] MEDS: MELATONIN 5 MG TABLETS PO PRN (21:46)
[2019-04-03] MEDS: QUEtiapine FUMARATE 400 MG TABLET PO SCH ×2 (09:59→21:47)
[2019-04-03] MEDS: hydrOXYzine PAMOATE 50 MG CAPSULE (FP) PO PRN ×2 (09:59→21:46)
[2019-04-03] MEDS: PARoxetine HCL 20 MG TABLET PO SCH ×2 (09:59→21:45)
[2019-04-03] MEDS: PRENATAL VITAMINS W/ FOLIC ACID TABLET (FP) PO SCH (09:59)
[2019-04-03] MEDS: NICOTINE 14 MG/24 HOURS TOPICAL PATCH TD SCH (09:59)
[2019-04-03] MEDS ORDERED: SODIUM PHOSPHATE/NA BIPHOS 133 ML ENEMA PR ONE (10:14)
--- NOTE | 2019-04-03 10:18 | PN ---
[facility] Progress Note (SOAP) Subjective: Patient continues to complain of constipation. She took citroma without results and was started on colace. Objective: General: no apparent distress HEENTM: normocephalic Heart: s1 s2 Lungs: clear ABD: soft, non-tender, non-distended, +BS 04/03/19 10:16 Assessment: Constipation 04/03/19 10:17 Plan: Patient was given a choice of (1) another dose of citroma, (2) MOM as needed, (3 ) Fleets Enema. Patient requested FLEETS Enema.
--- NOTE | 2019-04-03 13:19 | DS ---
[facility] Rehab Discharge Summary - [facility] Rehab Discharge Summary Admission Date: 03/20/19 Discharge Date: 04/03/19 - History Present History: Cannabis dependence, Cocaine dependence Pertinent Past History: 43 Y.O AAF REFERRED BY HER SPOUSE FOR K2 AND COCAINE DEPENDENCE.THIS IS HER FIRST TIME SEEKING TXMENT FOR HER ADDICTION. SHE REPORTS A HX/OF K2 FOR THE PAST 2 YEARS AND RECENTLY STARTED SMOKING COCAINE APPROX 100 DOLLARS/DAILY. DENIES HX.O BLACK OUTS/ SEIZURES/ DRUG OVERDOSE. REPORTS LONGEST CLEAN TIME 1 YEAR. DENIES ANY RECENT CLEAN TIME THIS PAST YEAR. LIVE W/ FAMILY, UNEMPLOYED- DISABILITY, DENIES LEGALS - Discharge Physical Exam Vital Signs: Vital Signs Temperature 98.2 F 03/31/19 09:23 Pulse Rate 85 04/03/19 09:45 Respiratory Rate 16 04/03/19 07:09 Blood Pressure 112/78 04/03/19 09:45 O2 Sat by Pulse Oximetry (%) Pertinent Admission Physical Exam Findings: Physical General Appearance: No apparent distress HEENTM: Normocephalic,FELIPE,missing teeth Respiratory: Lungs Clear, Neck: Supple, Trachea in good position Breast: Symetrical Cardiology: S1, S2 Abdominal: +Bowel Sounds, Non Tender, Soft Musculoskeletal: full range of Motion, Gait Steady Neurological: CN 2-12 intact. - Treatment Discharge Condition: Outpatient referral accepted (Will go to [facility] for aftercare. Medically stable for discharge.) Hospital Course: Patient attended groups, had several 1:1 meetings with her counselors, was seen by the psychiatric service. She c/o body aches, which resolved and constipation , which was treated. She was adherent to her medication regimen and her treatment plan. - Medication Discharge Medications: Ambulatory Orders Paroxetine HCl [Paxil] 40 mg PO DAILY #30 tablet 07/05/16 Quetiapine Fumarate [Seroquel -] 400 mg PO BID #60 tab 07/05/16 traZODone HCL [Desyrel -] 100 mg PO HS #30 tablet 07/05/16 - Medication-Assisted Treatment (MAT) Medication-Assisted Treatment (MAT): No - Discharge Instructions Diet, activity, other medical instructions: Diet:as tolerated Activity: as tolerated Other medical instructions: Please follow up with aftercare referral. - Diagnosis (1) Cocaine dependence, uncomplicated Current Visit: Yes Status: Acute (2) Synthetic cannabinoid dependence Current Visit: Yes Status: Chronic - Follow-up Referral Minutes to complete discharge: 20 - AMA Did Patient Leave Against Medical Advice: No
--- NOTE | 2019-04-03 16:36 | PN ---
[facility] Progress Note Note: Psychiatric nurse practitioner note: Patient scheduled for discharge tomorrow morning (04/04/19). A 30 day prescription of Paxil 20mg BID + Seroquel 400mg BID + Trazodone 150mg HS was electronically sent to [facility] pharmacy, [address] [place] [id number].
[2019-04-03] MEDS: THIAMINE HCL 100 MG TABLET (FP) PO SCH (21:45)
[2019-04-03] MEDS: traZODone HCL 50 MG TABLET (FP) PO SCH (21:45)
[2019-04-03] MEDS: DOCUSATE SODIUM 100 MG CAPSULE (FP) PO SCH (21:46)
[2019-04-03] MEDS ORDERED: PT OWN MED DRAWER 7, Y5N ONE (22:30)
[2019-04-04 07:09] VITALS: BP 124/87; PULSE 84; TEMP 98.4
[2019-04-04] MEDS ORDERED: PT OWN MED DRAWER 7, Y5N ONE (08:43)
== END 2019-04-04 08:52 | disposition home or self-care (01) | DRG 772 ==
LOC: YASAS 16:57 → Y3E 20:53
PROVIDERS: ADMIT Neuromusculoskeletal Medicine & OMM; ATTEND Neuromusculoskeletal Medicine & OMM
PROC: HZ42ZZZ Group Counseling for Substance Abuse Treatment, Cognitive-Behavioral (ICD-10-PCS; principal; 2019-03-20)
DX: F14.20 Cocaine dependence, uncomplicated (principal); F12.20 Cannabis dependence, uncomplicated; F17.210 Nicotine dependence, cigarettes, uncomplicated; F31.9 Bipolar disorder, unspecified; F19.24 Other psychoactive substance dependence with psychoactive substance-induced mood disorder; F43.10 Post-traumatic stress disorder, unspecified; K59.00 Constipation, unspecified; I10 Essential (primary) hypertension; Z62.810 Personal history of physical and sexual abuse in childhood; Z91.410 Personal history of adult physical and sexual abuse; Z56.0 Unemployment, unspecified; Z91.5 Personal history of self-harm
CPT/HCPCS: 36415; 80053; 81003; 81025; 85027; 86593; 90732; 93005; 93010; G0008; G0009; Q2036

== ENCOUNTER 2020-03-04 12:18 | Emergency (ER) | payer OTHER ==
[2020-03-04 12:31] VITALS: BP 141/99; PULSE 92; TEMP 98; BMI 33.4
== END 2020-03-04 14:32 | disposition home or self-care (01) ==
LOC: JERFT 12:18
DX: S80.01XA Contusion of right knee, initial encounter (principal); S80.02XA Contusion of left knee, initial encounter; S39.012A Strain of muscle, fascia and tendon of lower back, initial encounter
CPT/HCPCS: 72100-TC-FY; 73562-TC-LT-FY; 73562-TC-RT-FY; 99285-25

== ENCOUNTER 2022-05-26 18:14 | Emergency (ER) | payer OTHER ==
[2022-05-26 18:17] VITALS: BP 143/85; PULSE 102; RESP 18; TEMP 98.2; BMI 32.2
[2022-05-26 20:30] LABS: BASO % 1.5 % (0-2.0); EOS % 1.2 % (0-4.5); HEMATOCRIT 34.2 % (32.4-45.2); HEMOGLOBIN 11.3 GM/dL (10.7-15.3); MCH 28.3 pg (25.7-33.7); MEAN CELL VOLUME 85.7 fl (80-96); MEAN PLT VOLUME 8.5 fl (7.5-11.1); MONO % 4.5 % (3.8-10.2); NEUT % 52.8 % (42.8-82.8); PLATELET COUNT 338 10^3/uL (134-434); RBC 3.99 M/mm3 (3.60-5.2); RDW 16.9 % (11.6-15.6); WHITE BLOOD COUNT 7.9 K/mm3 (4.0-10.0)
[2022-05-26 20:37] LABS: INR 1.13 (0.83-1.09); PROTHROMBIN TIME (PATIENT) 13.1 SEC (9.7-13.0)
[2022-05-26 20:40] LABS: ACTIVATED PTT 30.4 SECONDS (25.2-36.5)
[2022-05-26 20:52] LABS: ALBUMIN 3.6 g/dl (3.4-5.0); BLOOD UREA NITROGEN 10.8 mg/dL (7-18); CALCIUM 8.9 mg/dL (8.5-10.1)
[2022-05-26 20:55] LABS: CREATININE 0.8 mg/dL (0.55-1.3)
[2022-05-26 20:57] LABS: BILIRUBIN,TOTAL 0.4 mg/dL (0.2-1); TOT PROT 7.5 g/dl (6.4-8.2)
[2022-05-26 21:55] LABS: EPI CELLS 32 /uL (0-25.1); HYALINE CASTS 6 /uL (0-3.1); URINE APPEARANCE CLOUDY; URINE BACTERIA 278 /uL (0-1359); URINE BILIRUBIN NEGATIVE (NEGATIVE); URINE COLOR YELLOW; URINE GLUCOSE (UA) NEGATIVE (NEGATIVE); URINE KETONE TRACE (NEGATIVE); URINE LEUK ESTERASE 2+ (NEGATIVE); URINE NITRITE NEGATIVE (NEGATIVE); URINE PROTEIN TRACE (NEGATIVE); URINE WBC 268 /uL (0-25.8)
[2022-05-26 22:25] LABS: URINE RBC 37 /uL (0-23.9)
== END 2022-05-26 23:04 | disposition home or self-care (01) ==
LOC: JER 18:14
DX: N93.9 Abnormal uterine and vaginal bleeding, unspecified (principal)
CPT/HCPCS: 36415; 76817-TC; 80053; 81003; 84702; 85025; 85610; 85730; 86850; 86900; 86901; 87086; 99284-25

== ENCOUNTER 2023-12-15 13:09 | Inpatient (IN) | payer OTHER ==
[2023-12-15 13:43] VITALS: BMI 24.6
[2023-12-15] MEDS ORDERED: NALOXONE HCL 0.4 MG/ML VIAL IM PRN (14:23)
[2023-12-15] MEDS ORDERED: BENZOCAINE/MENTHOL (CHLORASEPTIC ) LOZENGE MM PRN (14:23)
[2023-12-15] MEDS ORDERED: guaiFENesin 600 MG TABLET.ER (FP) PO PRN (14:23)
[2023-12-15] MEDS ORDERED: NALOXONE (NARCAN) HCL 4 MG/0.1 ML SPRAY NS PRN (14:23)
[2023-12-15] MEDS ORDERED: POLYETHYLENE GLYCOL (HEALTHYLAX) 3350 17 GM PACKET PO PRN (14:23)
[2023-12-15] MEDS ORDERED: hydrOXYzine PAMOATE 25 MG CAPSULE (FP) PO PRN (14:23)
[2023-12-15] MEDS ORDERED: MAG HYDROX/AL HYDROX/SIMETH 30 ML UNIT-DOSE CUP PO PRN (14:23)
[2023-12-15] MEDS ORDERED: LOPERAMIDE HCL 2 MG CAPSULE PO PRN (14:23)
[2023-12-15] MEDS ORDERED: IBUPROFEN 400 MG TABLET (FP) PO PRN (14:23)
[2023-12-15] MEDS ORDERED: MAGNESIUM HYDROX 2400MG/30ML ORAL SUSPENSION 30 ML CUP PO PRN (14:23)
[2023-12-15] MEDS ORDERED: ACETAMINOPHEN 325 MG TABLET (FP) PO PRN (14:23)
[2023-12-15] MEDS ORDERED: BENZONATATE 200 MG CAPSULE PO PRN (14:23)
[2023-12-15] MEDS ORDERED: NICOTINE 7 MG/24 HOURS TOPICAL PATCH TD ONE (14:59)
[2023-12-15] MEDS ORDERED: PRENATAL VITAMINS W/ FOLIC ACID TABLET (FP) PO ONE (14:59)
[2023-12-15] MEDS: NICOTINE 7 MG/24 HOURS TOPICAL PATCH TD SCH (15:05)
[2023-12-15] MEDS: PRENATAL VITAMINS W/ FOLIC ACID TABLET (FP) PO SCH (15:05)
[2023-12-15] MEDS: metoPROLOL SUCCINATE 25 MG TAB.SR.24H (FP) PO SCH (16:02)
[2023-12-15] MEDS: IBUPROFEN 600 MG TABLET (FP) PO PRN (22:08)
[2023-12-15] MEDS: MELATONIN 5 MG TABLETS PO SCH (22:08)
[2023-12-15] MEDS: THIAMINE 100 MG TABLET PO SCH (22:08)
[2023-12-15] MEDS: METHOCARBAMOL 500 MG TABLET PO PRN (23:41)
[2023-12-16] MEDS: cloNIDine HCL 0.1 MG TABLET PO ONE (09:58)
[2023-12-16 10:05] LABS: EPI CELLS 22 /uL (0-25.1); HYALINE CASTS 4 /uL (0-3.1); PH,URINE 6.5 (5.0-8.0); URINE APPEARANCE CLEAR; URINE BACTERIA 278 /uL (0-1359); URINE BILIRUBIN NEGATIVE (NEGATIVE); URINE COLOR YELLOW; URINE GLUCOSE (UA) NEGATIVE (NEGATIVE); URINE KETONE NEGATIVE (NEGATIVE); URINE LEUK ESTERASE 2+ (NEGATIVE); URINE NITRITE NEGATIVE (NEGATIVE); URINE PROTEIN NEGATIVE (NEGATIVE); URINE RBC 20 /uL (0-23.9); URINE UROBILINOGEN 0.2 mg/dL (0.2-1.0); URINE WBC 225 /uL (0-25.8)
[2023-12-16] MEDS: diazePAM 5 MG TABLET PO ONE (10:54)
[2023-12-16] MEDS: diazePAM 2 MG TABLET PO ONE (11:11)
[2023-12-16 11:43] LABS: POTASSIUM 4.5 mmol/L (3.5-5.1)
[2023-12-16 11:48] LABS: HEMATOCRIT 32.1 % (32.4-45.2); HEMOGLOBIN 10.3 GM/dL (10.7-15.3); MCH 26.7 pg (25.7-33.7); MEAN CELL VOLUME 83.4 fl (80-96); MEAN PLT VOLUME 13.2 fl (7.5-11.1); PLATELET COUNT 280 10^3/uL (134-434); RBC 3.85 M/mm3 (3.60-5.2); RDW 17.4 % (11.6-15.6); WHITE BLOOD COUNT 7.8 K/mm3 (4.0-10.0)
[2023-12-16 11:52] LABS: BLOOD UREA NITROGEN 15.3 mg/dL (7-18); CALCIUM 8.9 mg/dL (8.5-10.1)
[2023-12-16 11:55] LABS: CREATININE 0.7 mg/dL (0.55-1.3)
[2023-12-16 11:56] LABS: BILIRUBIN,TOTAL 0.3 mg/dL (0.2-1); TOT PROT 6.5 g/dl (6.4-8.2)
[2023-12-16 12:08] LABS: SYPHILIS W/ RPR CONF NON-REACTIVE (NONREACTIVE)
[2023-12-16] MEDS: amLODIPine BESYLATE 10 MG TABLET (FP) PO SCH (14:18)
[2023-12-16] MEDS: QUEtiapine FUMARATE 100 MG TABLET (FP) PO SCH (21:56)
[2023-12-16] MEDS: traZODone HCL 50 MG TABLET (FP) PO SCH (21:56)
[2023-12-18 18:59] VITALS: TEMP 98.4
[2023-12-18 21:12] VITALS: BP 141/101; PULSE 93; RESP 20
[2023-12-18] MEDS ORDERED: QUEtiapine FUMARATE 200 MG TABLET PO SCH (22:00)
[2023-12-18] MEDS ORDERED: traZODone HCL 100 MG TABLET (FP) PO SCH (22:00)
[2023-12-18] MEDS ORDERED: PRAZOSIN HCL 1 MG CAPSULE PO SCH (22:00)
[2023-12-19] MEDS ORDERED: PARoxetine HCL 20 MG TABLET PO SCH (10:00)
== END 2023-12-18 21:14 | disposition left against medical advice (07) | DRG 770 ==
LOC: YASAS 13:09 → Y3NR 15:15 → Y5N 12-17 22:14 → Y3NR 12-17 23:29 → Y5N 12-18 18:02
PROVIDERS: ADMIT Psychiatry & Neurology Pain Medicine; ATTEND Psychiatry & Neurology Pain Medicine
PROC: HZ42ZZZ Group Counseling for Substance Abuse Treatment, Cognitive-Behavioral (ICD-10-PCS; principal; 2023-12-15)
DX: F14.20 Cocaine dependence, uncomplicated (principal); F16.20 Hallucinogen dependence, uncomplicated; F12.20 Cannabis dependence, uncomplicated; F17.210 Nicotine dependence, cigarettes, uncomplicated; F25.9 Schizoaffective disorder, unspecified; F19.24 Other psychoactive substance dependence with psychoactive substance-induced mood disorder; G47.00 Insomnia, unspecified; Z86.59 Personal history of other mental and behavioral disorders
CPT/HCPCS: 36415; 80053; 80305; 80307; 81003; 81025; 85027; 86780; 86803; 87811; 93005; 93010